=== PATIENT | male | born 1940 | race Caucasian/White ===

== ENCOUNTER 2025-04-03 09:22 | Inpatient (IN) ==
[2025-04-03] MEDS ORDERED: IOPAMIDOL 100 ML BOTTLE IV ONE (09:23)
[2025-04-03 10:03] LABS: Basophils # (Auto) 0.04 K/mcL (0.00-0.30); Basophils % (Auto) 0.2 % (0.0-2.0); Eosinophils # (Auto) 0.09 K/mcL (0.00-0.70); Eosinophils % (Auto) 0.4 % (0.0-7.0); Hematocrit 29.6 % (40.1-51.0); Hemoglobin 9.2 g/dL (13.7-17.5); Lymphocytes # (Auto) 2.00 K/mcL (1.50-4.80); Lymphocytes % (Auto) 8.2 % (15.5-49.0); Mean Corpuscular HGB Conc 31.1 g/dL (31.0-36.0); Monocytes # (Auto) 0.41 K/mcL (0.10-0.90); Monocytes % (Auto) 1.7 % (1.0-12.0); Neutrophils % (Auto) 89.3 % (38.0-78.0); Platelet Count 276 K/mcL (140-440); RBC 3.45 M/mcL (4.63-6.08); WBC 24.5 K/mcL (4.5-11.0)
[2025-04-03 10:13] LABS: ALT/SGPT 23 U/L (<40); AST/SGOT 19 U/L (<40); Albumin 3.9 gm/dL (3.2-5.2); Albumin/Globulin Ratio 1.4 (1.0-2.3); Alkaline Phosphatase 74 U/L (39-117); Anion Gap 11.0 (8.0-16.0); Bilirubin,Total 0.4 mg/dL (0.1-1.0); Blood Urea Nitrogen 21 mg/dL (8-23); Calcium 9.3 mg/dL (8.6-10.4); Carbon Dioxide 25 mmol/L (22-30); Chloride 104 mmol/L (96-108); Globulin 2.8 gm/dL (2.2-3.7); Glucose 153 mg/dL (70-105); Potassium 4.0 mmol/L (3.3-5.1); Sodium 140 mmol/L (133-145)
[2025-04-03] MEDS: CEFEPIME 2 GM VIAL IV ONE (11:17)
[2025-04-03] MEDS: LIDOCAINE 2% URO-JET 10 ML JEL.PF.APP UR ONE (14:05)
[2025-04-03 14:42] LABS: Bilirubin,Urine NEGATIVE (Negative); Color,Urine LT. YELLOW; Glucose,Urine (UA) NEGATIVE (Negative); Ketones,Urine NEGATIVE (Negative); Leukocyte Esterase,Urine NEGATIVE /uL (Negative); PH,Urine 7.0 (5.0-9.0); Protein,Urine NEGATIVE (Negative); Specific Gravity,Urine 1.010 (1.000-1.035); Urobilinogen,Urine 0.2 mg/dL
[2025-04-03 17:05] LABS: RBC Morphology NORMAL (Normal)
[2025-04-03] MEDS ORDERED: ONDANSETRON 4 MG/2 ML VIAL IV PRN (17:25)
[2025-04-03] MEDS ORDERED: VANCOMYCIN PER PHARMACY IV SCH (17:25)
[2025-04-03] MEDS ORDERED: DEXTROSE 50% 50 ML VIAL IV PRN (17:25)
[2025-04-03] MEDS ORDERED: IPRATROPIUM/ALBUTEROL 3 ML AMPUL.NEB NEB PRN (17:25)
[2025-04-03] MEDS ORDERED: MAGNESIUM SULFATE 2 GM/50 ML BAG IV PRN (17:25)
[2025-04-03] MEDS ORDERED: SENNOSIDES 1 TABLET PO PRN (17:25)
[2025-04-03] MEDS ORDERED: LACTULOSE 20 GM/30 ML ORAL.SOL PO PRN (17:25)
[2025-04-03] MEDS ORDERED: POTASSIUM CHLORIDE 40 MEQ in DEXTROSE 5% IN WATER 500 ML IV PRN (17:25)
[2025-04-03] MEDS ORDERED: METOCLOPRAMIDE 10 MG/2 ML VIAL IV PRN (17:25)
[2025-04-03] MEDS ORDERED: DEXTROSE 31 GM ORAL.SUSP PO PRN (17:25)
[2025-04-03] MEDS ORDERED: POLYETHYLENE GLYCOL 3350 17 GM PACKET PO PRN (17:25)
[2025-04-03] MEDS ORDERED: POTASSIUM CHLORIDE 20 MEQ TABLET PO PRN ×2 (17:25)
[2025-04-03] MEDS: 0.9 % SODIUM CHLORIDE 1,000 ML IV SCH (18:06)
[2025-04-03] MEDS: CEFEPIME 2 GM VIAL IV SCH (18:08)
[2025-04-03] MEDS: INSULIN LISPRO 1 UNIT/0.01 ML UNIT SQ SCH (18:09)
[2025-04-03] MEDS ORDERED: VANCOMYCIN 1,500 MG in 0.9 % SODIUM CHLORIDE 500 ML IV ONE (20:00)
[2025-04-03] MEDS: DOCUSATE SODIUM 100 MG CAPSULE PO SCH (22:04)
[2025-04-03] MEDS: VANCOMYCIN 1,000 MG in 0.9 % SODIUM CHLORIDE 250 ML IV SCH (22:11)
[2025-04-03] MEDS: MUPIROCIN OINT 2% 22GM NARES SCH (22:19)
[2025-04-03] MEDS: 0.9 % SODIUM CHLORIDE 10 ML SYRINGE IV SCH (22:46)
[2025-04-04 06:24] LABS: Hematocrit 27.6 % (40.1-51.0); Hemoglobin 8.4 g/dL (13.7-17.5); Mean Corpuscular HGB Conc 30.4 g/dL (31.0-36.0); Platelet Count 226 K/mcL (140-440); RBC 3.18 M/mcL (4.63-6.08); WBC 11.3 K/mcL (4.5-11.0)
[2025-04-04 06:50] LABS: ALT/SGPT 20 U/L (<40); AST/SGOT 18 U/L (<40); Albumin 3.5 gm/dL (3.2-5.2); Albumin/Globulin Ratio 1.3 (1.0-2.3); Alkaline Phosphatase 66 U/L (39-117); Anion Gap 10.0 (8.0-16.0); Bilirubin,Direct 0.2 mg/dL (<0.3); Bilirubin,Total 0.4 mg/dL (0.1-1.0); Blood Urea Nitrogen 16 mg/dL (8-23); Calcium 8.9 mg/dL (8.6-10.4); Carbon Dioxide 24 mmol/L (22-30); Chloride 108 mmol/L (96-108); Globulin 2.6 gm/dL (2.2-3.7); Glucose 122 mg/dL (70-105); Phosphorous 2.8 mg/dL (2.5-4.5); Potassium 3.9 mmol/L (3.3-5.1); Sodium 142 mmol/L (133-145); Triglycerides 115 mg/dL (<150); Uric Acid 7.4 mg/dL (2.5-8.0)
[2025-04-04 06:56] LABS: RBC Morphology NORMAL (Normal)
[2025-04-04 07:00] LABS: Estimated Average Glucose(eAG) 154 mg/dL; Hemoglobin A1C 7.0 % Hgb (4.0-6.0)
[2025-04-04] MEDS: ENOXAPARIN 40 MG/0.4 ML SYRINGE SQ SCH (09:32)
[2025-04-04] MEDS: ATORVASTATIN 40 MG TABLET PO SCH (09:34)
[2025-04-04] MEDS: OMEPRAZOLE 20 MG CAPSULE PO SCH (09:34)
[2025-04-04] MEDS: PREGABALIN 75 MG CAPSULE PO SCH (09:37)
[2025-04-04] MEDS: TAMSULOSIN 0.4 MG CAPSULE PO SCH (09:37)
[2025-04-04] MEDS: LOSARTAN 50 MG TABLET PO SCH (09:38)
[2025-04-04] MEDS: CARBIDOPA/LEVODOPA 25/100 TABLET PO SCH (10:08)
[2025-04-04] MEDS: DONEPEZIL 10 MG TABLET PO SCH (21:28)
[2025-04-05 07:14] LABS: Anion Gap 9.0 (8.0-16.0); Blood Urea Nitrogen 14 mg/dL (8-23); Calcium 8.8 mg/dL (8.6-10.4); Carbon Dioxide 24 mmol/L (22-30); Chloride 109 mmol/L (96-108); Glucose 129 mg/dL (70-105); Potassium 3.8 mmol/L (3.3-5.1); Sodium 142 mmol/L (133-145)
[2025-04-05 07:26] LABS: Basophils # (Auto) 0.07 K/mcL (0.00-0.30); Basophils % (Auto) 0.9 % (0.0-2.0); Eosinophils # (Auto) 0.51 K/mcL (0.00-0.70); Eosinophils % (Auto) 6.2 % (0.0-7.0); Hematocrit 27.5 % (40.1-51.0); Hemoglobin 8.3 g/dL (13.7-17.5); Lymphocytes # (Auto) 1.78 K/mcL (1.50-4.80); Lymphocytes % (Auto) 21.7 % (15.5-49.0); Mean Corpuscular HGB Conc 30.2 g/dL (31.0-36.0); Monocytes # (Auto) 0.57 K/mcL (0.10-0.90); Monocytes % (Auto) 7.0 % (1.0-12.0); Neutrophils % (Auto) 64.1 % (38.0-78.0); Platelet Count 226 K/mcL (140-440); RBC 3.11 M/mcL (4.63-6.08); WBC 8.2 K/mcL (4.5-11.0)
[2025-04-05] MEDS: ACETAMINOPHEN 325 MG TABLET PO PRN (20:55)
[2025-04-06 06:17] LABS: Basophils # (Auto) 0.07 K/mcL (0.00-0.30); Basophils % (Auto) 0.9 % (0.0-2.0); Eosinophils # (Auto) 0.55 K/mcL (0.00-0.70); Eosinophils % (Auto) 6.9 % (0.0-7.0); Hematocrit 28.1 % (40.1-51.0); Hemoglobin 8.6 g/dL (13.7-17.5); Lymphocytes # (Auto) 2.06 K/mcL (1.50-4.80); Lymphocytes % (Auto) 25.8 % (15.5-49.0); Mean Corpuscular HGB Conc 30.6 g/dL (31.0-36.0); Monocytes # (Auto) 0.53 K/mcL (0.10-0.90); Monocytes % (Auto) 6.6 % (1.0-12.0); Neutrophils % (Auto) 59.8 % (38.0-78.0); Platelet Count 255 K/mcL (140-440); RBC 3.22 M/mcL (4.63-6.08); WBC 8.0 K/mcL (4.5-11.0)
[2025-04-06 06:32] LABS: Anion Gap 11.0 (8.0-16.0); Blood Urea Nitrogen 15 mg/dL (8-23); Calcium 9.0 mg/dL (8.6-10.4); Carbon Dioxide 22 mmol/L (22-30); Chloride 110 mmol/L (96-108); Glucose 124 mg/dL (70-105); Potassium 3.7 mmol/L (3.3-5.1); Sodium 143 mmol/L (133-145)
[2025-04-06 15:52] VITALS: TEMP 97.7; O2SAT 99
== END 2025-04-06 15:55 | disposition home health service (06) | DRG 872 ==
LOC: ED 09:22 → MEDSUR 17:24
PROVIDERS: ADMIT Internal Medicine; ATTEND Internal Medicine

== ENCOUNTER 2025-04-11 15:31 | Inpatient (IN) ==
[2025-04-11] MEDS ORDERED: IOPAMIDOL 50 ML BOTTLE IV ONE (15:32)
[2025-04-11] MEDS: 0.9 % SODIUM CHLORIDE 1,000 ML IV ONE (16:05)
[2025-04-11 16:25] LABS: Basophils # (Auto) 0.05 K/mcL (0.00-0.30); Basophils % (Auto) 0.3 % (0.0-2.0); Eosinophils # (Auto) 0.15 K/mcL (0.00-0.70); Eosinophils % (Auto) 0.8 % (0.0-7.0); Hematocrit 32.4 % (40.1-51.0); Hemoglobin 9.7 g/dL (13.7-17.5); Lymphocytes # (Auto) 1.79 K/mcL (1.50-4.80); Lymphocytes % (Auto) 9.1 % (15.5-49.0); Mean Corpuscular HGB Conc 29.9 g/dL (31.0-36.0); Monocytes # (Auto) 1.14 K/mcL (0.10-0.90); Monocytes % (Auto) 5.8 % (1.0-12.0); Neutrophils % (Auto) 83.8 % (38.0-78.0); Platelet Count 275 K/mcL (140-440); RBC 3.74 M/mcL (4.63-6.08); WBC 19.8 K/mcL (4.5-11.0)
[2025-04-11 16:26] LABS: INR 1.0 (0.9-1.1); Prothrombin Time 14.3 sec (11.9-14.5)
[2025-04-11 16:40] LABS: ALT/SGPT 18 U/L (<40); AST/SGOT 22 U/L (<40); Albumin 4.1 gm/dL (3.2-5.2); Albumin/Globulin Ratio 1.4 (1.0-2.3); Alkaline Phosphatase 79 U/L (39-117); Anion Gap 14.0 (8.0-16.0); Bilirubin,Total 0.4 mg/dL (0.1-1.0); Blood Urea Nitrogen 15 mg/dL (8-23); Calcium 9.2 mg/dL (8.6-10.4); Carbon Dioxide 23 mmol/L (22-30); Chloride 104 mmol/L (96-108); Globulin 2.9 gm/dL (2.2-3.7); Glucose 144 mg/dL (70-105); Potassium 4.2 mmol/L (3.3-5.1); Sodium 141 mmol/L (133-145)
[2025-04-11 17:38] LABS: Bacteria,Urine 0 /hpf (0); Bilirubin,Urine NEGATIVE (Negative); Color,Urine LT. YELLOW; Glucose,Urine (UA) NEGATIVE (Negative); Ketones,Urine NEGATIVE (Negative); Leukocyte Esterase,Urine NEGATIVE /uL (Negative); PH,Urine 6.0 (5.0-9.0); Protein,Urine TRACE mg/dL (Negative); Specific Gravity,Urine 1.020 (1.000-1.035); Urobilinogen,Urine 0.2 mg/dL
[2025-04-11] MEDS: VANCOMYCIN 1,500 MG in 0.9 % SODIUM CHLORIDE 500 ML IV ONE ×2 (18:07→18:49)
[2025-04-11] MEDS: PIPERACILLIN SODIUM/TAZOBACTAM 4.5 GM in DEXTROSE 5% IN WATER 50 ML IV ONE (18:07)
[2025-04-11] MEDS: PIPERACILLIN SODIUM/TAZOBACTAM 3.375 GM in DEXTROSE 5% IN WATER 50 ML IV ONE (18:16)
[2025-04-11] MEDS: 0.9 % SODIUM CHLORIDE 500 ML ONE (18:16)
[2025-04-11] MEDS ORDERED: DEXTROSE 31 GM ORAL.SUSP PO PRN (19:56)
[2025-04-11] MEDS ORDERED: VANCOMYCIN PER PHARMACY IV SCH (19:56)
[2025-04-11] MEDS ORDERED: DEXTROSE 50% 50 ML VIAL IV PRN (19:56)
[2025-04-11] MEDS ORDERED: IPRATROPIUM/ALBUTEROL 3 ML AMPUL.NEB NEB PRN (19:56)
[2025-04-11] MEDS: 0.9 % SODIUM CHLORIDE 1,000 ML IV SCH (20:57)
[2025-04-11] MEDS: LOSARTAN 50 MG TABLET PO SCH (22:16)
[2025-04-11] MEDS: PIPERACILLIN SODIUM/TAZOBACTAM 3.375 GM in DEXTROSE 5% IN WATER 100 ML IV SCH (22:16)
[2025-04-11] MEDS: PREGABALIN 75 MG CAPSULE PO SCH (22:16)
[2025-04-11] MEDS: CLOTRIMAZOLE CRM 1% 1 DOSE TUBE TOPICAL SCH (22:17)
[2025-04-11] MEDS: DONEPEZIL 10 MG TABLET PO SCH (22:17)
[2025-04-11] MEDS: NYSTATIN POWDER BOTTLE 15GM TOPICAL SCH (22:17)
[2025-04-11] MEDS: CARBIDOPA/LEVODOPA 25/100 TABLET PO SCH (22:17)
[2025-04-11] MEDS: INSULIN LISPRO 1 UNIT/0.01 ML UNIT SQ SCH (22:17)
[2025-04-11] MEDS: 0.9 % SODIUM CHLORIDE 10 ML SYRINGE IV SCH (22:18)
[2025-04-12] MEDS: MULTIVIT,THER IRON,CA,FA & MIN 1 TABLET PO SCH (05:31)
[2025-04-12 06:26] LABS: Basophils # (Auto) 0.09 K/mcL (0.00-0.30); Basophils % (Auto) 0.5 % (0.0-2.0); Eosinophils # (Auto) 0.30 K/mcL (0.00-0.70); Eosinophils % (Auto) 1.7 % (0.0-7.0); Hematocrit 30.0 % (40.1-51.0); Hemoglobin 8.9 g/dL (13.7-17.5); Lymphocytes # (Auto) 1.45 K/mcL (1.50-4.80); Lymphocytes % (Auto) 8.4 % (15.5-49.0); Mean Corpuscular HGB Conc 29.7 g/dL (31.0-36.0); Monocytes # (Auto) 0.92 K/mcL (0.10-0.90); Monocytes % (Auto) 5.3 % (1.0-12.0); Neutrophils % (Auto) 83.8 % (38.0-78.0); Platelet Count 254 K/mcL (140-440); RBC 3.43 M/mcL (4.63-6.08); WBC 17.2 K/mcL (4.5-11.0)
[2025-04-12 06:32] LABS: ALT/SGPT 20 U/L (<40); AST/SGOT 18 U/L (<40); Albumin 3.9 gm/dL (3.2-5.2); Albumin/Globulin Ratio 1.4 (1.0-2.3); Alkaline Phosphatase 73 U/L (39-117); Anion Gap 12.0 (8.0-16.0); Bilirubin,Direct 0.3 mg/dL (<0.3); Bilirubin,Total 0.6 mg/dL (0.1-1.0); Blood Urea Nitrogen 11 mg/dL (8-23); C-Reactive Protein 10.00 mg/dL (0.03-0.80); Calcium 8.8 mg/dL (8.6-10.4); Carbon Dioxide 24 mmol/L (22-30); Chloride 105 mmol/L (96-108); Globulin 2.8 gm/dL (2.2-3.7); Glucose 146 mg/dL (70-105); Phosphorous 2.7 mg/dL (2.5-4.5); Potassium 4.0 mmol/L (3.3-5.1); Sodium 141 mmol/L (133-145); Triglycerides 88 mg/dL (<150); Uric Acid 4.1 mg/dL (2.5-8.0)
[2025-04-12] MEDS: OMEPRAZOLE 20 MG CAPSULE PO SCH (08:20)
[2025-04-12] MEDS: ACETAMINOPHEN 325 MG TABLET PO PRN (08:20)
[2025-04-12] MEDS: ENOXAPARIN 40 MG/0.4 ML SYRINGE SQ SCH (10:24)
[2025-04-12] MEDS: ATORVASTATIN 40 MG TABLET PO SCH (10:24)
[2025-04-12] MEDS: TAMSULOSIN 0.4 MG CAPSULE PO SCH (10:24)
[2025-04-12] MEDS: LACTATED RINGERS 1,000 ML IV SCH (15:01)
[2025-04-12] MEDS: VANCOMYCIN 1,500 MG in 0.9 % SODIUM CHLORIDE 500 ML IV SCH (17:30)
[2025-04-13 07:03] LABS: ALT/SGPT 6 U/L (<40); AST/SGOT 20 U/L (<40); Albumin 3.5 gm/dL (3.2-5.2); Albumin/Globulin Ratio 1.2 (1.0-2.3); Alkaline Phosphatase 66 U/L (39-117); Anion Gap 12.0 (8.0-16.0); Bilirubin,Direct 0.3 mg/dL (<0.3); Bilirubin,Total 0.5 mg/dL (0.1-1.0); Blood Urea Nitrogen 8 mg/dL (8-23); C-Reactive Protein 13.70 mg/dL (0.03-0.80); Calcium 8.7 mg/dL (8.6-10.4); Carbon Dioxide 22 mmol/L (22-30); Chloride 104 mmol/L (96-108); Globulin 2.9 gm/dL (2.2-3.7); Glucose 150 mg/dL (70-105); Phosphorous 2.5 mg/dL (2.5-4.5); Potassium 3.7 mmol/L (3.3-5.1); Sodium 138 mmol/L (133-145); Triglycerides 77 mg/dL (<150); Uric Acid 2.7 mg/dL (2.5-8.0)
[2025-04-13] MEDS ORDERED: ACETAMINOPHEN 650 MG/65 ML BAG IV PRN (09:43)
[2025-04-13 10:57] LABS: Basophils # (Auto) 0.04 K/mcL (0.00-0.30); Basophils % (Auto) 0.3 % (0.0-2.0); Eosinophils # (Auto) 0.05 K/mcL (0.00-0.70); Eosinophils % (Auto) 0.4 % (0.0-7.0); Hematocrit 27.1 % (40.1-51.0); Hemoglobin 8.1 g/dL (13.7-17.5); Lymphocytes # (Auto) 1.45 K/mcL (1.50-4.80); Lymphocytes % (Auto) 11.0 % (15.5-49.0); Mean Corpuscular HGB Conc 29.9 g/dL (31.0-36.0); Monocytes # (Auto) 0.85 K/mcL (0.10-0.90); Monocytes % (Auto) 6.4 % (1.0-12.0); Neutrophils % (Auto) 81.7 % (38.0-78.0); Platelet Count 207 K/mcL (140-440); RBC 3.17 M/mcL (4.63-6.08); WBC 13.2 K/mcL (4.5-11.0)
[2025-04-13] MEDS: LINEZOLID 600 MG/300 ML BAG IV SCH (11:03)
[2025-04-13] MEDS: LEVOFLOXACIN 750 MG/150 ML BAG IV SCH (11:20)
[2025-04-13] MEDS: ACETAMINOPHEN 1,000 MG/100 ML BAG IV PRN (11:21)
[2025-04-13] MEDS: METHOCARBAMOL 1,000 MG/10 ML VIAL IV PRN (17:58)
[2025-04-14 06:56] LABS: Basophils # (Auto) 0.05 K/mcL (0.00-0.30); Basophils % (Auto) 0.4 % (0.0-2.0); Eosinophils # (Auto) 0.10 K/mcL (0.00-0.70); Eosinophils % (Auto) 0.8 % (0.0-7.0); Hematocrit 26.7 % (40.1-51.0); Hemoglobin 8.2 g/dL (13.7-17.5); Lymphocytes # (Auto) 1.89 K/mcL (1.50-4.80); Lymphocytes % (Auto) 15.3 % (15.5-49.0); Mean Corpuscular HGB Conc 30.7 g/dL (31.0-36.0); Monocytes # (Auto) 0.83 K/mcL (0.10-0.90); Monocytes % (Auto) 6.7 % (1.0-12.0); Neutrophils % (Auto) 76.7 % (38.0-78.0); Platelet Count 211 K/mcL (140-440); RBC 3.10 M/mcL (4.63-6.08); WBC 12.4 K/mcL (4.5-11.0)
[2025-04-14 07:04] LABS: ALT/SGPT 7 U/L (<40); AST/SGOT 28 U/L (<40); Albumin 3.4 gm/dL (3.2-5.2); Albumin/Globulin Ratio 1.1 (1.0-2.3); Alkaline Phosphatase 67 U/L (39-117); Anion Gap 12.0 (8.0-16.0); Bilirubin,Direct 0.3 mg/dL (<0.3); Bilirubin,Total 0.4 mg/dL (0.1-1.0); Blood Urea Nitrogen 8 mg/dL (8-23); C-Reactive Protein 10.30 mg/dL (0.03-0.80); Calcium 8.9 mg/dL (8.6-10.4); Carbon Dioxide 23 mmol/L (22-30); Chloride 104 mmol/L (96-108); Globulin 3.0 gm/dL (2.2-3.7); Glucose 112 mg/dL (70-105); Phosphorous 2.6 mg/dL (2.5-4.5); Potassium 3.5 mmol/L (3.3-5.1); Sodium 139 mmol/L (133-145); Triglycerides 84 mg/dL (<150); Uric Acid 3.4 mg/dL (2.5-8.0)
[2025-04-14] MEDS: ONDANSETRON 4 MG/2 ML VIAL IV PRN (11:38)
[2025-04-15 06:49] LABS: ALT/SGPT 11 U/L (<40); AST/SGOT 26 U/L (<40); Albumin 3.5 gm/dL (3.2-5.2); Albumin/Globulin Ratio 1.2 (1.0-2.3); Alkaline Phosphatase 68 U/L (39-117); Anion Gap 9.0 (8.0-16.0); Bilirubin,Direct 0.3 mg/dL (<0.3); Bilirubin,Total 0.5 mg/dL (0.1-1.0); Blood Urea Nitrogen 11 mg/dL (8-23); C-Reactive Protein 8.11 mg/dL (0.03-0.80); Calcium 8.9 mg/dL (8.6-10.4); Carbon Dioxide 26 mmol/L (22-30); Chloride 101 mmol/L (96-108); Globulin 3.0 gm/dL (2.2-3.7); Glucose 128 mg/dL (70-105); Phosphorous 2.7 mg/dL (2.5-4.5); Potassium 3.3 mmol/L (3.3-5.1); Sodium 136 mmol/L (133-145); Triglycerides 92 mg/dL (<150); Uric Acid 4.1 mg/dL (2.5-8.0)
[2025-04-16 06:01] LABS: Basophils # (Auto) 0.05 K/mcL (0.00-0.30); Basophils % (Auto) 0.5 % (0.0-2.0); Eosinophils # (Auto) 0.26 K/mcL (0.00-0.70); Eosinophils % (Auto) 2.5 % (0.0-7.0); Hematocrit 26.5 % (40.1-51.0); Hemoglobin 8.1 g/dL (13.7-17.5); Lymphocytes # (Auto) 1.89 K/mcL (1.50-4.80); Lymphocytes % (Auto) 18.0 % (15.5-49.0); Mean Corpuscular HGB Conc 30.6 g/dL (31.0-36.0); Monocytes # (Auto) 0.84 K/mcL (0.10-0.90); Monocytes % (Auto) 8.0 % (1.0-12.0); Neutrophils % (Auto) 70.9 % (38.0-78.0); Platelet Count 236 K/mcL (140-440); RBC 3.12 M/mcL (4.63-6.08); WBC 10.5 K/mcL (4.5-11.0)
[2025-04-16 06:22] LABS: ALT/SGPT 21 U/L (<40); AST/SGOT 24 U/L (<40); Albumin 3.4 gm/dL (3.2-5.2); Albumin/Globulin Ratio 1.2 (1.0-2.3); Alkaline Phosphatase 66 U/L (39-117); Anion Gap 11.0 (8.0-16.0); Bilirubin,Direct 0.2 mg/dL (<0.3); Bilirubin,Total 0.4 mg/dL (0.1-1.0); Blood Urea Nitrogen 10 mg/dL (8-23); C-Reactive Protein 7.84 mg/dL (0.03-0.80); Calcium 8.7 mg/dL (8.6-10.4); Carbon Dioxide 26 mmol/L (22-30); Chloride 102 mmol/L (96-108); Globulin 2.8 gm/dL (2.2-3.7); Glucose 112 mg/dL (70-105); Phosphorous 2.7 mg/dL (2.5-4.5); Potassium 3.2 mmol/L (3.3-5.1); Sodium 139 mmol/L (133-145); Triglycerides 99 mg/dL (<150); Uric Acid 4.0 mg/dL (2.5-8.0)
[2025-04-16 13:24] LABS: Basophils # (Auto) 0.06 K/mcL (0.00-0.30); Basophils % (Auto) 0.6 % (0.0-2.0); Eosinophils # (Auto) 0.22 K/mcL (0.00-0.70); Eosinophils % (Auto) 2.1 % (0.0-7.0); Hematocrit 27.0 % (40.1-51.0); Hemoglobin 8.2 g/dL (13.7-17.5); Lymphocytes # (Auto) 1.75 K/mcL (1.50-4.80); Lymphocytes % (Auto) 16.7 % (15.5-49.0); Mean Corpuscular HGB Conc 30.4 g/dL (31.0-36.0); Monocytes # (Auto) 0.68 K/mcL (0.10-0.90); Monocytes % (Auto) 6.5 % (1.0-12.0); Neutrophils % (Auto) 73.8 % (38.0-78.0); Platelet Count 225 K/mcL (140-440); RBC 3.14 M/mcL (4.63-6.08); WBC 10.5 K/mcL (4.5-11.0)
[2025-04-16] MEDS: POTASSIUM CHLORIDE 20 MEQ TABLET PO ONE (15:09)
[2025-04-17 06:14] LABS: Basophils # (Auto) 0.05 K/mcL (0.00-0.30); Basophils % (Auto) 0.5 % (0.0-2.0); Eosinophils # (Auto) 0.24 K/mcL (0.00-0.70); Eosinophils % (Auto) 2.4 % (0.0-7.0); Hematocrit 27.3 % (40.1-51.0); Hemoglobin 8.0 g/dL (13.7-17.5); Lymphocytes # (Auto) 2.10 K/mcL (1.50-4.80); Lymphocytes % (Auto) 20.7 % (15.5-49.0); Mean Corpuscular HGB Conc 29.3 g/dL (31.0-36.0); Monocytes # (Auto) 0.82 K/mcL (0.10-0.90); Monocytes % (Auto) 8.1 % (1.0-12.0); Neutrophils % (Auto) 68.1 % (38.0-78.0); Platelet Count 227 K/mcL (140-440); RBC 3.14 M/mcL (4.63-6.08); WBC 10.2 K/mcL (4.5-11.0)
[2025-04-17 10:26] LABS: C-Reactive Protein 7.76 mg/dL (0.03-0.80); Phosphorous 2.7 mg/dL (2.5-4.5)
[2025-04-17 10:33] LABS: Anion Gap 10.0 (8.0-16.0); Blood Urea Nitrogen 10 mg/dL (8-23); Calcium 8.4 mg/dL (8.6-10.4); Carbon Dioxide 24 mmol/L (22-30); Chloride 106 mmol/L (96-108); Glucose 125 mg/dL (70-105); Potassium 3.7 mmol/L (3.3-5.1); Sodium 140 mmol/L (133-145)
[2025-04-18 06:56] LABS: Phosphorous 2.9 mg/dL (2.5-4.5)
[2025-04-18 06:56] LABS: Anion Gap 15.0 (8.0-16.0); Blood Urea Nitrogen 9 mg/dL (8-23); C-Reactive Protein 7.34 mg/dL (0.03-0.80); Calcium 9.1 mg/dL (8.6-10.4); Carbon Dioxide 19 mmol/L (22-30); Chloride 105 mmol/L (96-108); Glucose 113 mg/dL (70-105); Potassium 3.7 mmol/L (3.3-5.1); Sodium 139 mmol/L (133-145)
[2025-04-18] MEDS: LINEZOLID 600 MG TABLET PO SCH (21:49)
[2025-04-19 06:29] LABS: Basophils # (Auto) 0.06 K/mcL (0.00-0.30); Basophils % (Auto) 0.7 % (0.0-2.0); Eosinophils # (Auto) 0.44 K/mcL (0.00-0.70); Eosinophils % (Auto) 4.9 % (0.0-7.0); Hematocrit 27.3 % (40.1-51.0); Hemoglobin 8.3 g/dL (13.7-17.5); Lymphocytes # (Auto) 1.82 K/mcL (1.50-4.80); Lymphocytes % (Auto) 20.4 % (15.5-49.0); Mean Corpuscular HGB Conc 30.4 g/dL (31.0-36.0); Monocytes # (Auto) 0.49 K/mcL (0.10-0.90); Monocytes % (Auto) 5.5 % (1.0-12.0); Neutrophils % (Auto) 68.4 % (38.0-78.0); Platelet Count 249 K/mcL (140-440); RBC 3.24 M/mcL (4.63-6.08); WBC 8.9 K/mcL (4.5-11.0)
[2025-04-19 06:56] LABS: Anion Gap 11.0 (8.0-16.0); Blood Urea Nitrogen 8 mg/dL (8-23); Calcium 8.5 mg/dL (8.6-10.4); Carbon Dioxide 25 mmol/L (22-30); Chloride 104 mmol/L (96-108); Glucose 117 mg/dL (70-105); Potassium 3.5 mmol/L (3.3-5.1); Sodium 140 mmol/L (133-145)
[2025-04-19 06:57] LABS: C-Reactive Protein 6.41 mg/dL (0.03-0.80)
[2025-04-19] MEDS: LEVOFLOXACIN 750 MG TABLET PO SCH (08:23)
[2025-04-21 08:37] VITALS: TEMP 96.8; O2SAT 99
== END 2025-04-21 10:15 | DRG 871 ==
LOC: ED 15:31 → MEDSUR 19:53
PROVIDERS: ADMIT Internal Medicine; ATTEND Internal Medicine